=== PATIENT | female | born 2000 | race Caucasian/White ===

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

== ENCOUNTER 2023-02-13 15:43 | Emergency (ER) | payer MEDICAID, OTHER ==
[~2023-02-13] VITALS: Ht 152.4 cm; Wt 90.7 kg
[~2023-02-13 15:43] MED LIST changes: +PRED20TA5 PO
[2023-02-13 16:16] VITALS: BP 108/66; PULSE 68; RESP 18; TEMP 97.8; O2SAT 98
[2023-02-13] MEDS ORDERED: IBUPROFEN 800 MG TAB PO ONE (17:00)
[2023-02-13] MEDS ORDERED: IBUP-2213 PO (18:02)
[2023-02-13 18:29] VITALS: BP 108/66; PULSE 68; RESP 18; TEMP 97.8; O2SAT 98
== END 2023-02-13 18:30 | disposition home or self-care (01) ==
LOC: MED 15:43
DX: M25.511 Pain in right shoulder (principal); Z79.899 Other long term (current) drug therapy
CPT/HCPCS: 73030; 99283